=== PATIENT | female | born 1950 | race Asian ===

== ENCOUNTER 2016-06-11 15:57 | Emergency (ER) | payer OTHER ==
[~2016-06-11] VITALS: Ht 160 cm; Wt 92.1 kg
[2016-06-11 16:26] VITALS: BP 133/75
== END 2016-06-11 18:35 | disposition home or self-care (01) ==
LOC: ED 18:10
DX: S16.1XXA Strain of muscle, fascia and tendon at neck level, initial encounter (principal); R51 Headache; I10 Essential (primary) hypertension; E11.9 Type 2 diabetes mellitus without complications; Z90.49 Acquired absence of other specified parts of digestive tract; Z90.710 Acquired absence of both cervix and uterus; V49.9XXA Car occupant (driver) (passenger) injured in unspecified traffic accident, initial encounter; Y93.89 Activity, other specified; Y99.8 Other external cause status; Y92.488 Other paved roadways as the place of occurrence of the external cause
CPT/HCPCS: 72125

== ENCOUNTER 2016-09-18 19:00 | Emergency (ER) | payer OTHER, MEDICARE ==
[~2016-09-18] VITALS: Ht 157.5 cm; Wt 92.7 kg
[2016-09-18] MEDS ORDERED: DIPHENHYDRAMINE 50 MG/ML, 1ML IVPush ONE ×2 (19:30→21:30)
[2016-09-18] MEDS ORDERED: SODIUM CHLORIDE 0.9% 1,000ML IVBOLUS ONE (19:30)
[2016-09-18] MEDS ORDERED: SODIUM CHLORIDE FLUSH 10ML SYR IVF ONE (19:30)
[2016-09-18] MEDS ORDERED: DIPHENHYDRAMINE 50 MG/ML, 1ML ONE ×3 (19:38→21:48)
[2016-09-18 19:58] LABS: ASPARTATE AMINO TRANSFERASE 22 U/L (15-37); BLOOD UREA NITROGEN 22 mg/dL (7-18)
[2016-09-18 20:16] LABS: IS PT STATUS REG ER OR PRE ER? YES
[2016-09-18] MEDS ORDERED: TOPI100T24 PO (20:21)
[2016-09-18] MEDS ORDERED: METO50TA82 PO (20:21)
[2016-09-18] MEDS ORDERED: LOSA1TAB17 PO (20:22)
[2016-09-18] MEDS ORDERED: DAPA10TA PO (20:23)
[2016-09-18] MEDS ORDERED: methylPREDNISolone SOD SUCC 125 MG/2 ML IVP ONE (21:30)
[2016-09-18] MEDS ORDERED: methylPREDNISolone SOD SUCC 125 MG/2 ML ONE (21:46)
[2016-09-18] MEDS ORDERED: OMNIPAQUE 350 MG/ML, 100ML BOTTLE ONE (22:14)
[2016-09-18] MEDS ORDERED: PANTOPRAZOLE 40 MG IV IVPush STA (23:22)
[2016-09-18] MEDS ORDERED: MAALOX/HYOSCYAMINE/LIDOCAINE 45 ML BOTTLE PO ONE (23:30)
[2016-09-18] MEDS ORDERED: PANTOPRAZOLE 40 MG IV ONE (23:38)
[2016-09-18] MEDS ORDERED: MAALOX/HYOSCYAMINE/LIDOCAINE 45 ML BOTTLE ONE (23:38)
[2016-09-19 00:16] VITALS: BP 137/72
== END 2016-09-19 00:19 | disposition home or self-care (01) ==
LOC: ED 19:44
DX: K29.00 Acute gastritis without bleeding (principal); E11.65 Type 2 diabetes mellitus with hyperglycemia; K26.9 Duodenal ulcer, unspecified as acute or chronic, without hemorrhage or perforation; I10 Essential (primary) hypertension; I25.2 Old myocardial infarction; Z90.49 Acquired absence of other specified parts of digestive tract; Z90.710 Acquired absence of both cervix and uterus
CPT/HCPCS: 36415; 71010; 71275; 74177; 76700; 80053; 81003; 83605; 83690; 84145; 84484; 85025; 85379; 87040; 93005; 96361; 96374; 96375; 99285; C9113; J1200; J2930; J7030; Q9967

== ENCOUNTER 2017-03-13 07:50 | Emergency (ER) | payer OTHER, MEDICARE ==
[~2017-03-13] VITALS: Ht 157.5 cm; Wt 91.0 kg
[~2017-03-13 07:50] MED LIST: DAPA10TA PO; LOSA1TAB22 PO; METO50TA82 PO; TOPI100T24 PO
[2017-03-13 07:52] VITALS: BP 158/82
[2017-03-13] MEDS ORDERED: SUPPLEMENTS (08:15)
[2017-03-13] MEDS ORDERED: HYDROmorphone 2 MG/ML, 1ML ONE (08:28)
[2017-03-13] MEDS ORDERED: ONDANSETRON 2MG/ML, 2ML ONE ×2 (08:28→09:26)
[2017-03-13] MEDS: HYDROmorphone 1 MG/ML, 1ML IVPush PRN (08:36)
[2017-03-13] MEDS: SODIUM CHLORIDE 0.9% 1,000ML IVBOLUS ONE (08:36)
[2017-03-13] MEDS: SODIUM CHLORIDE FLUSH 10ML SYR IVF ONE (08:36)
[2017-03-13] MEDS: ONDANSETRON 2MG/ML, 2ML IVPush ONE ×2 (08:36→09:27)
[2017-03-13 08:44] LABS: HEMATOCRIT 43.5 % (34.6-47.8); HEMOGLOBIN 14.6 g/dL (11.7-16.4)
[2017-03-13 08:48] LABS: ASPARTATE AMINO TRANSFERASE 22 U/L (15-37); BLOOD UREA NITROGEN 12 mg/dL (7-18)
== END 2017-03-13 10:49 | disposition home or self-care (01) ==
LOC: ED 10:42
DX: R10.32 Left lower quadrant pain (principal); R10.12 Left upper quadrant pain; E11.9 Type 2 diabetes mellitus without complications; I10 Essential (primary) hypertension; E66.9 Obesity, unspecified; Z90.710 Acquired absence of both cervix and uterus
CPT/HCPCS: 36415; 74176; 80053; 81003; 83690; 85025; 96361; 96374; 96375; 96376; 99285; J1170; J2405; J7030

== ENCOUNTER 2018-01-22 08:33 | Outpatient (CLI) | payer OTHER, MEDICARE ==
[~2018-01-22 08:33] MED LIST changes: +SUPPLEMENTS
== END 2018-01-29 12:52 | disposition home or self-care (01) ==
LOC: CFH 08:33
DX: Z13.820 Encounter for screening for osteoporosis (principal); M85.88 Other specified disorders of bone density and structure, other site
CPT/HCPCS: 77080

== ENCOUNTER → 2018-01-31 | Outpatient (CLI) | payer OTHER, MEDICARE ==
[~2018-01-31] MED LIST changes: +REGADENOSON 0.4 MG/5 ML SYRINGE ONE
== END | disposition home or self-care (01) ==
LOC: CVU 09:14
PROVIDERS: ATTEND Internal Medicine Cardiovascular Disease
DX: I21.19 ST elevation (STEMI) myocardial infarction involving other coronary artery of inferior wall (principal); I35.1 Nonrheumatic aortic (valve) insufficiency; I70.0 Atherosclerosis of aorta; I70.8 Atherosclerosis of other arteries; I25.2 Old myocardial infarction; E11.9 Type 2 diabetes mellitus without complications; E78.5 Hyperlipidemia, unspecified; I25.10 Atherosclerotic heart disease of native coronary artery without angina pectoris; Z82.49 Family history of ischemic heart disease and other diseases of the circulatory system
CPT/HCPCS: 78452; 93017; 93306; 93978; A9502; J2785

== ENCOUNTER 2018-08-15 11:41 | Outpatient (CLI) | payer OTHER, MEDICARE ==
[~2018-08-15 11:41] MED LIST changes: -REGADENOSON 0.4 MG/5 ML SYRINGE ONE
== END 2018-08-15 23:59 | disposition home or self-care (01) ==
LOC: RAD 11:41
PROVIDERS: ATTEND Physician Assistant
DX: N20.0 Calculus of kidney (principal)
CPT/HCPCS: 74176

== ENCOUNTER 2018-08-18 16:42 | Emergency (ER) | payer OTHER, MEDICARE ==
[~2018-08-18] VITALS: Ht 157.5 cm; Wt 95.7 kg
[2018-08-18] MEDS ORDERED: KETOROLAC 30 MG/1 ML ONE (17:22)
[2018-08-18 17:23] LABS: BASOPHILS # (AUTO) 0.03 x10^3/uL (0-0.1); BASOPHILS % (AUTO) 1 % (0-1); EOSINOPHILS # (AUTO) 0.05 x10^3/uL (0-0.4); EOSINOPHILS % (AUTO) 1 % (1-7); LYMPHOCYTES # (AUTO) 1.39 x10^3/uL (1-3.4); LYMPHOCYTES % (AUTO) 32 % (22-44); MD NO; MEAN CORPUSCULAR HGB CONC 33.1 g/dL (32.4-35.8); MEAN CORPUSCULAR VOLUME 93.9 fL (80-100); MEAN PLATELET VOLUME 8.5 fL (7.4-10.4); MONOCYTES # (AUTO) 0.27 x10^3/uL (0.2-0.8); MONOCYTES % (AUTO) 6 % (2-9); NEUTROPHILS # (AUTO) 2.59 x10^3/uL (1.8-6.8); NEUTROPHILS % (AUTO) 60 % (42-75); PLATELET COUNT 195 x10^3/uL (130-400); RED BLOOD COUNT 4.28 x10^6/uL (3.82-5.3); RED CELL DISTRIBUTION WIDTH 13.5 % (9.6-15.2)
[2018-08-18] MEDS ORDERED: HYDROcodone/APAP 5/325 TABLET ONE (17:23)
[2018-08-18] MEDS ORDERED: KETOROLAC 30 MG/1 ML IVPush ONE (17:30)
[2018-08-18] MEDS ORDERED: HYDROcodone/APAP 5/325 TABLET PO ONE (17:30)
[2018-08-18 17:31] LABS: ALANINE AMINOTRANSFERASE 34 U/L (12-78); ALBUMIN 3.6 g/dL (3.4-5.0); ANION GAP 5 mmol/L (5-15); CALCIUM 8.7 mg/dL (8.5-10.1); CHLORIDE 106 mmol/L (98-107)
[2018-08-18 17:34] LABS: ALKALINE PHOSPHATASE 83 U/L (45-117); BILIRUBIN,TOTAL 0.3 mg/dL (0.2-1.0)
[2018-08-18 17:40] LABS: CULTURE INDICATED? NO; MICROSCOPIC NOT IND
[2018-08-18 18:41] VITALS: BP 143/79
== END 2018-08-18 18:43 | disposition home or self-care (01) ==
LOC: ED 18:20
DX: M54.6 Pain in thoracic spine (principal); E11.9 Type 2 diabetes mellitus without complications; I25.2 Old myocardial infarction; I10 Essential (primary) hypertension; Z87.891 Personal history of nicotine dependence; Z72.9 Problem related to lifestyle, unspecified
CPT/HCPCS: 36415; 74018; 76770; 80053; 81003; 85025; 96374; 99284; J1885

== ENCOUNTER 2019-04-20 17:33 | Emergency (ER) | payer OTHER, MEDICARE ==
[~2019-04-20] VITALS: Ht 157.5 cm; Wt 96.3 kg
[~2019-04-20 17:33] MED LIST changes: +ATOR-2 PO; +LOSARTAN; +[UNRECOGNIZED DRUG - REMARK]
[2019-04-20 18:10] VITALS: BP 188/78
--- NOTE | 2019-04-20 18:55 | NUR ---
FEVER, COUGH, SORE THRAOT STARTING 0200 THIS AM
--- NOTE | 2019-04-20 18:55 | NUR ---
Jaja richard in [facility] - 04/20/19 at 1856 by JOSHUA RT HAND VS DOG
[2019-04-20 19:02] LABS: RAPID INFLUENZA A Negative (Negative); RAPID INFLUENZA B Negative (Negative)
--- NOTE | 2019-04-20 19:16 | NUR ---
given dc instruction with prescription pt understood pt up ambulated to check out
== END 2019-04-20 19:18 ==
LOC: ED 19:12
DX: J06.9 Acute upper respiratory infection, unspecified (principal); L02.412 Cutaneous abscess of left axilla; I25.2 Old myocardial infarction; I10 Essential (primary) hypertension; E11.9 Type 2 diabetes mellitus without complications; Z90.49 Acquired absence of other specified parts of digestive tract; Z90.89 Acquired absence of other organs; Z90.710 Acquired absence of both cervix and uterus
CPT/HCPCS: 71046; 87081; 87400; 87880; 99284

== ENCOUNTER → 2019-09-30 | Outpatient (CLI) | payer OTHER, MEDICARE | END | disposition home or self-care (01) | LOC: CFH 12:18 | PROVIDERS: ATTEND Nurse Practitioner Family | DX: Z12.31 Encounter for screening mammogram for malignant neoplasm of breast (principal) | CPT/HCPCS: 77063; 77067 ==

== ENCOUNTER → 2020-06-10 | Outpatient (CLI) | payer OTHER, MEDICARE | END | disposition home or self-care (01) | LOC: RAD 12:02 | PROVIDERS: ATTEND Nurse Practitioner Family | DX: M45.6 Ankylosing spondylitis lumbar region (principal); M43.26 Fusion of spine, lumbar region; M51.36 Other intervertebral disc degeneration, lumbar region; M81.0 Age-related osteoporosis without current pathological fracture | CPT/HCPCS: 72110; 72202 ==

== ENCOUNTER 2020-07-21 08:21 | Outpatient (CLI) | payer OTHER, MEDICARE ==
[2020-07-21] MEDS ORDERED: FENTANYL PF 100 MCG/2ML ONE (08:53)
[2020-07-21] MEDS ORDERED: FLUMAZENIL 0.1 MG/1 ML, 5ML ONE (08:53)
[2020-07-21] MEDS ORDERED: MIDAZOLAM 1 MG/ML, 5ML ONE (08:53)
[2020-07-21] MEDS ORDERED: NALOXONE 1 MG/ML, 2ML ONE (08:53)
== END 2020-07-21 23:59 | disposition home or self-care (01) ==
LOC: RAD 08:21
PROVIDERS: ATTEND Nurse Practitioner Family
DX: M51.36 Other intervertebral disc degeneration, lumbar region (principal); I10 Essential (primary) hypertension; E11.9 Type 2 diabetes mellitus without complications; I25.2 Old myocardial infarction; Z88.5 Allergy status to narcotic agent; Z88.8 Allergy status to other drugs, medicaments and biological substances
CPT/HCPCS: 72148; 99156; 99157; J2250; J3010; J2310